=== PATIENT | female | born 1935 | race Hispanic/Latino ===

== ENCOUNTER 2016-08-21 11:31 | Emergency (ER) | payer MEDICARE ==
[2016-08-21 12:01] LABS: #Basophils 0.1 thou/uL (0.0-0.2); #Lymphocytes 1.7 thou/uL (1.20-3.40); #Monocytes 0.6 thou/uL (0.11-0.59); %Basophils 1.4 % (0.0-1.0); %Eosinophils 11.6 % (0.0-10.0); %Monocytes 7.2 % (0.0-10.0); %Neutrophils 59.8 % (42.0-75.0); Hemoglobin 12.4 g/dL (12.0-16.0); Mean Corpuscular HGB CONC 32.8 g/dL (32.0-36.0); Mean Corpuscular Hemoglobin 28.6 pg (27.0-31.0); Mean Corpuscular Volume 87.2 fl (81.0-99.0); Mean Platelet Volume 7.6 fL (7.4-10.4); Platelet Count 264 thou/uL (130-400); RBC Distribution Width 12.5 % (11.5-14.5); Red Blood Cell (RBC) Count 4.33 mill/uL (4.20-5.40); White Blood Cell (WBC) Count 8.3 thou/uL (4.8-10.8)
[2016-08-21 12:15] LABS: CKMB 1.7 ng/mL (0-6.6); Troponin I 0.016 ng/mL (< 0.028)
[2016-08-21 12:16] LABS: ALT (SGPT) 13 U/L (8-55); AST (SGOT) 17 U/L (5-34); Albumin 4.1 g/dL (3.4-4.8); Alkaline Phosphatase 142 U/L (40-150); Anion Gap 15 mmol/L (10-20); BUN (Urea Nitrogen) 19 mg/dL (9.8-20.1); Bilirubin, Total 0.4 mg/dL (0.2-1.2); Calc. Creatinine Clearance 0 mL/min (70-130); Calcium 10.1 mg/dL (7.8-10.44); Carbon Dioxide 25 mmol/L (23-31); Chloride 102 mmol/L (98-107); Estimated GFR-MDRD 70; Globulin 3.5 g/dL (2.4-3.5); Glucose 99 mg/dL (83-110); Potassium 4.1 mmol/L (3.5-5.1); Protein, Total 7.6 g/dL (6.0-8.3); Sodium 138 mmol/L (136-145)
[2016-08-21 12:18] LABS: INR-International Normal Ratio 0.9; Prothrombin Time 12.7 SEC (12.0-14.7)
[2016-08-21 12:20] LABS: D-Dimer Test 0.55 *mcg/mL (0.27-0.43)
--- NOTE | 2016-08-21 12:47 | RAD ---
PORTABLE AP CHEST: Date: 08-21-16 History: Chest pain which radiates into the back between shoulder blades. Comparison: 01-31-16 FINDINGS: Cardiac silhouette is magnified by projection. Pulmonary vasculature is within normal limits. The johnathan ngs are clear. There is osteopenia. There has been no interval change from the prior exam. IMPRESSION: No acute cardiopulmonary process. POS: [facility]
--- NOTE | 2016-08-21 14:01 | CT ---
CT PULMONARY ANGIOGRAM WITH IV CONTRAST AND 3D POSTPROCESSING: Date: 08/21/16 HISTORY: Chest pain with elevated D-Dimer. FINDINGS: No filling defects are seen in the well contrast opacified pulmonary arterial vasculature to suggest pulmonary embolism. The thoracic aorta is well opacified without aneurysm or dissection. No pleural or pericardial effusions are seen. No pneumothoraces, lobar consolidation, or pulmonary masses are seen. There is scarring in the lung apices. There is a tiny calcified granuloma in the superior segm ent of the right lower lobe. There are degenerative changes in the spine. A small hiatal hernia is p resent. There is a 2.2 cm left adrenal mass. There are cysts in the right kidney. Degenerative naidu es are present in the spine. IMPRESSION: 1. No CT evidence of pulmonary embolism or thoracic aortic dissection/aneurysm. 2. Small hiatal hernia. 3. Indeterminate 2.2 cm left adrenal nodule. A dedicated CT scan of the abdomen using the adrenal p rotocol should be performed on a nonemergent basis. POS: [id number]
[2016-08-21 14:30] LABS: CKMB 1.6 ng/mL (0-6.6); Troponin I Less than 0.010 ng/mL (< 0.028)
== END 2016-08-21 14:42 | disposition home or self-care (01) ==
LOC: NAV ERS 11:31
DX: R07.2 Precordial pain (principal); E11.9 Type 2 diabetes mellitus without complications; I10 Essential (primary) hypertension; J45.909 Unspecified asthma, uncomplicated; Z79.899 Other long term (current) drug therapy
CPT/HCPCS: 71010; 71275; 80053; 82553; 83880; 84484; 85025; 85379; 85610; 85730; 93005; 94760

== ENCOUNTER 2016-11-18 08:47 | Outpatient (CLI) | payer MEDICARE ==
[2016-11-18 12:57] LABS: #Basophils 0.1 thou/uL (0.0-0.2); #Eosinphils 1.1 thou/uL (0.0-0.7); #Lymphocytes 1.7 thou/uL (1.20-3.40); #Monocytes 0.6 thou/uL (0.11-0.59); #Neutrophils 4.2 thou/uL (1.40-6.50); %Basophils 1.5 % (0.0-1.0); %Eosinophils 13.7 % (0.0-10.0); %Lymphocytes 22.1 % (21.0-51.0); %Monocytes 7.5 % (0.0-10.0); %Neutrophils 55.1 % (42.0-75.0); Hemoglobin 12.6 g/dL (12.0-16.0); Mean Corpuscular HGB CONC 31.5 g/dL (32.0-36.0); Mean Corpuscular Hemoglobin 28.3 pg (27.0-31.0); Mean Corpuscular Volume 89.9 fl (81.0-99.0); Mean Platelet Volume 7.3 fL (7.4-10.4); Platelet Count 267 thou/uL (130-400); RBC Distribution Width 12.2 % (11.5-14.5); Red Blood Cell (RBC) Count 4.45 mill/uL (4.20-5.40); White Blood Cell (WBC) Count 7.6 thou/uL (4.8-10.8)
[2016-11-18 18:21] LABS: Hemoglobin A1c 5.9 % (4.0-6.0)
[2016-11-18 18:59] LABS: ALT (SGPT) 14 U/L (8-55); AST (SGOT) 20 U/L (5-34); Albumin 4.3 g/dL (3.4-4.8); Alkaline Phosphatase 147 U/L (40-150); Anion Gap 20 mmol/L (10-20); BUN (Urea Nitrogen) 16 mg/dL (9.8-20.1); Bilirubin, Direct 0.2 mg/dL (0.1-0.3); Bilirubin, Total 0.4 mg/dL (0.2-1.2); Calc. Creatinine Clearance 0 mL/min (70-130); Calcium 10.2 mg/dL (7.8-10.44); Carbon Dioxide 24 mmol/L (23-31); Cardiac Risk 3.3 (Less than 4.5); Chloride 105 mmol/L (98-107); Cholesterol 184 mg/dl (< 200 Desired); Estimated GFR-MDRD 79; Glucose 94 mg/dL (83-110); HDL Cholesterol 56 mg/dL (>60 Neg Risk); LDL Cholesterol, Calculated 105 mg/dL; Protein, Total 7.4 g/dL (6.0-8.3); Sodium 144 mmol/L (136-145); Triglycerides 115 mg/dL (Less than 150)
== END 2016-11-18 08:48 | disposition home or self-care (01) ==
LOC: NAVSJIPCSP 08:47
PROVIDERS: ATTEND Family Medicine
DX: J44.9 Chronic obstructive pulmonary disease, unspecified (principal); I10 Essential (primary) hypertension; E11.9 Type 2 diabetes mellitus without complications; R60.9 Edema, unspecified; Z79.899 Other long term (current) drug therapy
CPT/HCPCS: 36415; 80048; 80061; 80076; 83036; 84443; 85025

== ENCOUNTER 2017-07-18 18:25 | Emergency (ER) | payer MEDICARE ==
[2017-07-18] MEDS ORDERED: Pantoprazole 40 MG VIAL ONE (19:15)
[2017-07-18 19:20] LABS: PTT 34.8 SEC (22.9-36.1); Prothrombin Time 13.1 SEC (12.0-14.7)
[2017-07-18 19:29] LABS: ALT (SGPT) 12 U/L (8-55); AST (SGOT) 13 U/L (5-34); Albumin 3.8 g/dL (3.4-4.8); Alkaline Phosphatase 173 U/L (40-150); Anion Gap 14 mmol/L (10-20); BUN (Urea Nitrogen) 18 mg/dL (9.8-20.1); Bilirubin, Total 0.2 mg/dL (0.2-1.2); Calc. Creatinine Clearance 0 mL/min (70-130); Calcium 10.1 mg/dL (7.8-10.44); Carbon Dioxide 26 mmol/L (23-31); Chloride 104 mmol/L (98-107); Estimated GFR-MDRD 68; Globulin 3.1 g/dL (2.4-3.5); Glucose 178 mg/dL (83-110); Lipase 40 U/L (8-78); Potassium 4.2 mmol/L (3.5-5.1); Protein, Total 6.9 g/dL (6.0-8.3); Sodium 140 mmol/L (136-145)
[2017-07-18 19:35] LABS: Hemoglobin 11.4 g/dL (12.0-16.0); Mean Corpuscular Hemoglobin 28.1 pg (27.0-31.0); Mean Corpuscular Volume 87.8 fl (81.0-99.0); Mean Platelet Volume 7.4 fL (7.4-10.4); Platelet Count 298 thou/uL (130-400); RBC Distribution Width 12.8 % (11.5-14.5); Red Blood Cell (RBC) Count 4.07 mill/uL (4.20-5.40); White Blood Cell (WBC) Count 7.7 thou/uL (4.8-10.8)
[2017-07-18 20:11] LABS: Band 2 % (5-11); Eosinophils 9 % (0-10); Lymphocytes 21 % (21-51); MDiff Complete? YES; Monocytes 5 % (0-10); Neutrophil 62 % (42-75); PLT Morphology Comment Appears Adequate; RBC Morphology Normal
[2017-07-18 20:13] LABS: Bilirubin Negative (Negative); Blood, Urine Small (Negative); Clarity Clear (Clear); Glucose, Urine (Dipstick) Negative (Negative); Leukocyte Moderate (Negative); Nitrite Negative (Negative); Protein, Urine (Dipstick) Negative (Neg-Trace); Specific Gravity, Urine 1.015 (1.005-1.030); Urobilinogen 0.2 mg/dL (0.2-1.0); pH, Urine 5.5 (5.0-9.0)
[2017-07-18 20:21] LABS: Bacteria/HPF Rare-Few HPF (None Seen); RBC/HPF 0-3 HPF (0-3); Squamous Epithelial 0-3 HPF (0-3)
== END 2017-07-18 20:49 | disposition short-term general hospital (02) ==
LOC: NAV ERS 18:25
DX: K92.2 Gastrointestinal hemorrhage, unspecified (principal); E11.9 Type 2 diabetes mellitus without complications; I10 Essential (primary) hypertension; J45.909 Unspecified asthma, uncomplicated; Z79.899 Other long term (current) drug therapy
CPT/HCPCS: 80053; 81003; 81015; 82274; 83690; 85025; 85610; 85730; 86850; 86900; 86901; 96365; 96375; C9113

== ENCOUNTER 2019-01-14 07:32 | Observation (INO) | payer MEDICARE ==
[2019-01-14] MEDS ORDERED: Sodium Chloride 0.9% 500 ML ONE ×2 (08:01→08:58)
[2019-01-14] MEDS ORDERED: Acetaminophen 500 MG TAB ONE (08:01)
--- NOTE | 2019-01-14 08:07 | RAD ---
SINGLE VIEW CHEST: DATE: 01/14/19 COMPARISON: 08/21/16. HISTORY: Cough and sore throat. Fever. FINDINGS: Single view of the chest shows a normal sized cardiomediastinal silhouette. There is no evidence of c onsolidation, mass, or pleural effusion. The bones are unremarkable. IMPRESSION: No evidence of acute cardiopulmonary disease. POS: [facility]
[2019-01-14 08:37] LABS: ALT (SGPT) 15 U/L (8-55); AST (SGOT) 19 U/L (5-34); Albumin 4.3 g/dL (3.4-4.8); Alkaline Phosphatase 135 U/L (40-110); Anion Gap 18 mmol/L (10-20); BUN (Urea Nitrogen) 16 mg/dL (9.8-20.1); Bilirubin, Total 0.7 mg/dL (0.2-1.2); Calc. Creatinine Clearance 0 mL/min (70-130); Calcium 10.7 mg/dL (7.8-10.44); Carbon Dioxide 23 mmol/L (23-31); Chloride 98 mmol/L (98-107); Estimated GFR-MDRD 69; Globulin 3.4 g/dL (2.4-3.5); Glucose 105 mg/dL (83-110); Potassium 4.1 mmol/L (3.5-5.1); Protein, Total 7.7 g/dL (6.0-8.3); Sodium 135 mmol/L (136-145)
[2019-01-14 08:47] LABS: Hemoglobin 13.5 g/dL (12.0-16.0); MDiff Complete? YES; Mean Corpuscular HGB CONC 32.3 g/dL (32.0-36.0); Mean Corpuscular Hemoglobin 28.3 pg (27.0-31.0); Mean Corpuscular Volume 87.5 fL (78.0-98.0); Mean Platelet Volume 7.1 fL (7.4-10.4); Platelet Count 223 thou/uL (130-400); RBC Distribution Width 11.8 % (11.5-14.5); Red Blood Cell (RBC) Count 4.77 mill/uL (4.20-5.40); White Blood Cell (WBC) Count 9.8 thou/uL (4.8-10.8)
[2019-01-14 08:48] LABS: Blast 1 % (0-0); Eosinophils 1 % (0-10); Lymphocytes 8 % (21-51); Monocytes 12 % (0-10); Neutrophil 78 % (42-75); Platelet Morphology Comment Appears Adequate
[2019-01-14 09:13] LABS: Bilirubin Small (Negative); Blood, Urine Moderate (Negative); Clarity Clear (Clear); Glucose, Urine (Dipstick) Negative (Negative); Leukocyte Trace (Negative); Nitrite Negative (Negative); Protein, Urine (Dipstick) 30 mg/dL (Neg-Trace)
[2019-01-14 09:20] LABS: Bacteria/HPF None Seen HPF (None Seen); Squamous Epithelial 0-3 HPF (0-3)
[2019-01-14 09:21] LABS: Mucous/LPF 3+ LPF (<2+)
[2019-01-14] MEDS ORDERED: methylPREDNISolone Sod Succ/PF 125 MG/2 ML VIAL ONE (09:45)
[2019-01-14] MEDS ORDERED: Sodium Chloride 0.9% 1,000 ML ONE (09:46)
[2019-01-14] MEDS ORDERED: Albuterol Sulfate 2.5 mg/3 ml Neb NEB PRN (11:15)
[2019-01-14] MEDS ORDERED: Sodium Chloride 0.9% 1,000 ML IV SCH (11:16)
[2019-01-14] MEDS ORDERED: Non-Formulary Item 1 EACH (Fluticasone/Salmeterol [Advair Diskus 250/50] 1 INH) IH PRN (13:10)
[2019-01-14] MEDS ORDERED: Non-Formulary Item 1 EACH (Acetaminophen [Tylenol] 1 CAP) PO PRN (13:10)
[2019-01-14] MEDS ORDERED: Montelukast Sodium 10 mg Tablet PO PRN (13:10)
[2019-01-14] MEDS ORDERED: Loperamide HCl 2 MG CAP PO PRN (13:11)
[2019-01-14] MEDS ORDERED: Acetaminophen 325 MG TAB PO PRN (13:11)
[2019-01-14] MEDS ORDERED: Ondansetron ODT 4 MG TAB PO PRN (13:11)
[2019-01-14] MEDS ORDERED: Senokot S 8.6-50 MG TAB PO PRN (13:11)
[2019-01-14] MEDS: Sodium Chloride 0.9% 1,000 ML IV SCH ×2 (13:52→22:22)
[2019-01-14] MEDS: Mometasone/Formoterol 60 PUFF AER INH SCH (18:00)
[2019-01-14] MEDS: Lisinopril 10 MG TAB PO SCH (21:00)
[2019-01-14] MEDS: Famotidine 20 MG TAB PO SCH (21:01)
[2019-01-15] MEDS: Mometasone/Formoterol 60 PUFF AER INH SCH (05:36)
[2019-01-15 05:42] VITALS: BMI 24.5
[2019-01-15 06:14] LABS: ALT (SGPT) 14 U/L (8-55); AST (SGOT) 17 U/L (5-34); Albumin 3.6 g/dL (3.4-4.8); Alkaline Phosphatase 106 U/L (40-110); Anion Gap 13 mmol/L (10-20); BUN (Urea Nitrogen) 15 mg/dL (9.8-20.1); Bilirubin, Total 0.4 mg/dL (0.2-1.2); Calc. Creatinine Clearance 65 mL/min (70-130); Carbon Dioxide 23 mmol/L (23-31); Chloride 105 mmol/L (98-107); Estimated GFR-MDRD 84; Globulin 2.8 g/dL (2.4-3.5); Glucose 112 mg/dL (83-110); Potassium 3.7 mmol/L (3.5-5.1); Protein, Total 6.4 g/dL (6.0-8.3); Sodium 137 mmol/L (136-145)
[2019-01-15] MEDS ORDERED: Cyanocobalamin (Vitamin B-12) 1,000 MCG TAB PO SCH (09:00)
[2019-01-15] MEDS: Lisinopril 10 MG TAB PO SCH (09:53)
[2019-01-15] MEDS: Famotidine 20 MG TAB PO SCH (09:53)
[2019-01-15] MEDS ORDERED: Azithromycin 250 MG TAB PO SCH (11:15)
[2019-01-15 11:22] VITALS: BP 146/60; TEMP 96.4
--- NOTE | 2019-01-15 13:33 | DIS ---
DATE OF ADMISSION: 01/14/2019 DATE OF DISCHARGE: 01/15/2019 PRINCIPAL DIAGNOSIS: Asthmatic bronchitis. SECONDARY DIAGNOSES: 1. Asthma. 2. Hypertension. 3. Allergic rhinitis. COMPLICATIONS: None. ADVERSE REACTIONS: None. PROCEDURES: None. CONSULTATIONS: None. HOSPITAL COURSE: The patient was admitted through the ER after presenting to the emergency room with fever, cough, and fatigue. The patient states that she has been using her Symbicort, but only once a day. She apparently has a history of allergy. She apparently worked outside without wearing her mask and then she started feeling bad. In the emergency room, her workup was negative for any pneumonia. Strep screen and flu screen were negative. She was given a dose of steroids and admitted to the hospital with some IV fluids. I am not sure if she got any antibiotics in the emergency room. This morning, she is feeling better, but still has some cough. She is having some greenish expectoration. She denies any chest pain or shortness of breath. Her oxygen saturation is 92% on room air. Plan is to ambulate her in the hallways and monitor her oxygen status, and if she is doing well and no lightheadedness, dizziness, or no drop in her oxygenation, then we will discharge her home. I advised her that I will give her one dose of Zithromax 500 mg p.o. now, and she is to continue Zithromax 250 mg p.o. daily for the next 4 days. I will also send in prednisone 20 mg b.i.d. for 3 days. PHYSICAL EXAMINATION: VITAL SIGNS: On the day of discharge, she is afebrile, heart rate is 77, respirations 18, and blood pressure 156/72. CARDIOVASCULAR SYSTEM: S1 and S2 plus. RESPIRATORY SYSTEM: Normal vesicular breath sounds with occasional wheeze. ABDOMEN: Soft and nontender. Bowel sounds heard in all quadrants. EXTREMITIES: Without cyanosis or clubbing. Peripheral pulses are palpable CENTRAL NERVOUS SYSTEM: AAO x3. Cranial nerves 2 through 12 intact. Generalized weakness. DIAGNOSTIC STUDIES: LABORATORY RESULTS: Sodium this morning was 137, potassium 3.7, BUN and creatinine are 15 and 0.67. DISCHARGE MEDICATIONS: 1. Zithromax 250 mg daily for 4 days. 2. Prednisone 20 mg b.i.d. for 3 days. 3. Lisinopril 10 mg b.i.d. 4. Singulair 10 mg daily. 5. Advair Diskus 250/50 one puff b.i.d., gargle after use. DIET: She is to follow a heart healthy diet. ACTIVITY: As tolerated. FOLLOWUP: She is to follow up with Dr. Morris in 7 to 10 days. She is to call us with any questions or concerns. Her family is in the room. All questions answered. DISCHARGE MEDICATIONS: Medications were sent in to [facility], which is her pharmacy. Job ID: [id number]
[2019-01-15] MEDS ORDERED: predniSONE 20 MG TAB PO SCH (21:00)
[2019-01-16] MEDS ORDERED: Azithromycin 250 MG TAB PO SCH (09:00)
--- NOTE | 2019-01-17 08:35 | HP ---
SUBJECTIVE: Ms. Lamb is a very pleasant 83-year-old female, who presented to the emergency room for evaluation with extreme fatigue, body aches, fever, cough, congestion, and chills. She has been taking albuterol and Tylenol, but has not been getting any better. She was seen in the emergency room by Dr. Ulysses Begum. He evaluated and felt that she needed admission at least to observation. She had upper respiratory most likely viral infection. Her strep screen was negative, although she did have some sore throat. Her influenza A and B were both negative. She was admitted because she was dehydrated, and so she was started on IV fluids of 100 mL an hour. She was also given some IV steroids in the emergency room and admitted. We will restart all of her home medications which include the following; 1. Lisinopril 10 mg one pill two times a day. 2. Advair Diskus 250/50 one puff b.i.d. 3. Montelukast 10 mg every h.s. 4. Vitamin B12 of 500 mcg once a day. 5. Vitamin D3 one capsule orally once a day. PAST MEDICAL HISTORY: Positive for 1. Asthma. 2. Allergic reaction to wasp sting. 3. Seborrheic keratosis. 4. 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 5. Diabetes. 6. Hypertension. SURGICAL HISTORY: Reveals 1. In 1959, breast surgery. 2. In 1980, excision of a cystic adenoma, left breast by Dr. Kimber Alcantar. 3. Bilateral cataract removal by Dr. Cespedes in June 2017. 4. Lumpectomy by Dr. Solomon in 2017. 5. Excision of lumpectomy margins, Dr. Solomon on January 26, 2018. FAMILY HISTORY: Reveals the patient's father at age 86 with degrees of heart problems and diabetes. The patient's mother at age 92. She had congestive heart failure, glaucoma, diabetes, hypertension, and heart disease. The patient had two brothers, who had , one from [place] related illness and the other from diabetes. The patient has a son alive, diagnosed with diabetes. The patient has one son and two daughters. They are healthy. SOCIAL HISTORY: Reveals the patient does not smoke. Rarely ever drinks at all. She is basically alone. She is retired and she is . She has one dog. She drinks coffee every morning, occasional glass of tea. She does Mendel exercises three times a week. She does not travel out of [facility]. ALLERGIES: REVEAL THE PATIENT IS ALLERGIC TO WASP STINGS. REVIEW OF SYSTEMS: CONSTITUTIONAL: Reveals the patient complains of generalized weakness with fever and chills about 100.5 or less. HEENT: The patient denies any change in her vision or hearing, but she has quite a bit of congestion and she just feels achy all over. CARDIOVASCULAR: The patient denies any palpitations, irregular heartbeat, edema, or shortness of breath. She does have some cough and congestion that has been increasing for the last 2-1/2 days. CARDIAC: The patient denies chest pain, palpitations, or regular heartbeat. GASTROENTEROLOGY: She denies diarrhea, constipation, nausea, or vomiting, although she has had a significant decrease in her appetite. MUSCULOSKELETAL: The patient states she is achy all over and just feels yucky. : The patient denies any increased urination, burning on urination, urgency, frequency, or dysuria. NEUROLOGIC: The patient denies headaches, just feels weak all over. Denies lightheadedness, paresthesias, or numbness. PSYCHIATRIC: The patient denies anxiety or depressive disorder. ENDOCRINE: The patient denies polyuria, polydipsia, or polyphagia. She does feel tired. PHYSICAL EXAMINATION: GENERAL: This is a well-developed, well-nourished, very pleasant 83-year-old female, presented to the emergency room with fever, chills, extreme achiness, weakness, and upper respiratory symptoms. HEENT: Reveals normocephalic and nontraumatic cranium. Pupils are equal, round, and reactive. Extraocular movements are intact. Nose and throat are slightly dry. Tongue is dry. NECK: Supple without masses, nodes, or bruits. CHEST: Clear to auscultation. No rales, rhonchi, or wheezes are heard, although the patient does have some coarse breath sounds, especially with coughing. HEART: Reveals a regular rate and rhythm without murmurs, gallops, or rubs. ABDOMEN: Soft, nontender without organomegaly. Normal bowel sounds are noted. No rebound or guarding is noted. : Deferred. EXTREMITIES: Reveal no clubbing, cyanosis, or edema. PSYCHOLOGIC: The patient is alert and oriented x4. She is well-kempt, cooperative. Affect is normal. Mood is appropriate. Intelligence above normal. ASSESSMENT: 1. Upper respiratory infection, most likely viral. 2. History of asthma and chronic obstructive pulmonary disease. 3. Dehydration. 4. Generalized weakness with subjective fever, chills, and achiness. PLAN: 1. The patient is admitted to observation. 2. We will slowly rehydrate the patient, start her off at 100 mL an hour, then decrease to 75. 3. Repeat labs tomorrow morning. 4. Handheld nebulizers q.i.d. and p.r.n. 5. Continue supportive care. 6. Dr. Mary Ortega will be following up this patient over the weekend. Job ID: [id number]
== END 2019-01-15 13:20 | disposition home or self-care (01) ==
LOC: NAV ERS 07:32 → NAV ACUTE 10:16
PROVIDERS: ADMIT Family Medicine; ATTEND Family Medicine
DX: E86.0 Dehydration (principal); J44.9 Chronic obstructive pulmonary disease, unspecified; I10 Essential (primary) hypertension; E11.9 Type 2 diabetes mellitus without complications; J06.9 Acute upper respiratory infection, unspecified; J30.9 Allergic rhinitis, unspecified; Z79.82 Long term (current) use of aspirin; Z79.899 Other long term (current) drug therapy; Z91.038 Other insect allergy status; Z91.040 Latex allergy status
CPT/HCPCS: 36415; 71045; 80053; 81003; 81015; 83605; 85025; 87040; 87081; 87430; 87804; 94640; 96361; 96374; G0378; J2930; J7050; J7620

== ENCOUNTER 2019-10-01 13:54 | Emergency (ER) | payer MEDICARE, OTHER ==
[2019-10-03 13:41] LABS: SARS-CoV-2 MS2 Positive; SARS-CoV-2 N Gene Negative; SARS-CoV-2 S Gene Negative; SARS-CoV-2 orf1ab Negative
== END 2019-10-01 15:35 | disposition home or self-care (01) ==
LOC: NAV ERS 13:54
DX: Z20.828 Contact with and (suspected) exposure to other viral communicable diseases (principal); J45.909 Unspecified asthma, uncomplicated; I10 Essential (primary) hypertension; Z79.899 Other long term (current) drug therapy; Z79.82 Long term (current) use of aspirin
CPT/HCPCS: 99283; U0003; 87635

== ENCOUNTER 2019-11-25 12:47 | Emergency (ER) | payer MEDICARE ==
--- NOTE | 2019-11-25 13:38 | CT ---
EXAM: CT brain without contrast HISTORY: Left facial numbness COMPARISON: None TECHNIQUE: Multiple contiguous axial images were obtained and a CT of the brain without contrast. FINDINGS: The brain is normal in morphology and attenuation without focal lesions or confluent areas of infarction. There is no evidence of hydrocephalus, intracranial hemorrhage, or extra-axial fluid collection. The calvarium and overlying soft tissues are unremarkable. Mucosal thickening is seen in paranasal si nuses. The mastoid air cells are well aerated. IMPRESSION: No evidence of acute intracranial abnormality
--- NOTE | 2019-11-25 13:46 | RAD ---
EXAM: Chest 2 views: HISTORY: Left facial numbness COMPARISON: 12/31/2017 FINDINGS: There is a normal-sized cardiomediastinal silhouette. There is no evidence of consolidation, mass, or pleural effusion. The bones are unremarkable. IMPRESSION: No evidence of acute cardiopulmonary disease
[2019-11-25 13:48] LABS: #Basophils 0.1 thou/uL (0.0-0.2); #Eosinphils 0.9 thou/uL (0.0-0.7); #Lymphocytes 1.3 thou/uL (1.20-3.40); #Monocytes 0.5 thou/uL (0.11-0.59); #Neutrophils 3.9 thou/uL (1.40-6.50); %Basophils 1.8 % (0.0-1.0); %Eosinophils 13.5 % (0.0-10.0); %Lymphocytes 19.1 % (21.0-51.0); %Monocytes 6.8 % (0.0-10.0); %Neutrophils 58.9 % (42.0-75.0); ALT (SGPT) 13 U/L (8-55); AST (SGOT) 17 U/L (5-34); Albumin 4.1 g/dL (3.4-4.8); Alkaline Phosphatase 156 U/L (40-110); Anion Gap 11 mmol/L (10-20); BUN (Urea Nitrogen) 15 mg/dL (9.8-20.1); Bilirubin, Total 0.3 mg/dL (0.2-1.2); Calc. Creatinine Clearance 0 mL/min (70-130); Calcium 10.2 mg/dL (7.8-10.44); Carbon Dioxide 27 mmol/L (23-31); Chloride 105 mmol/L (98-107); Estimated GFR-MDRD 80; Globulin 2.9 g/dL (2.4-3.5); Glucose 121 mg/dL (83-110); Hemoglobin 11.7 g/dL (12.0-16.0); Mean Corpuscular Hemoglobin 28.9 pg (27.0-31.0); Mean Corpuscular Volume 93.3 fL (78.0-98.0); Mean Platelet Volume 8.4 fL (7.4-10.4); Platelet Count 235 thou/uL (130-400); Potassium 4.4 mmol/L (3.5-5.1); RBC Distribution Width 12.3 % (11.5-14.5); Red Blood Cell (RBC) Count 4.03 mill/uL (4.20-5.40); Sodium 139 mmol/L (136-145); White Blood Cell (WBC) Count 6.6 thou/uL (4.8-10.8)
== END 2019-11-25 14:40 | disposition home or self-care (01) ==
LOC: NAV ERS 12:47
DX: R20.2 Paresthesia of skin (principal); I10 Essential (primary) hypertension; J45.909 Unspecified asthma, uncomplicated; Z79.899 Other long term (current) drug therapy; Z79.82 Long term (current) use of aspirin
CPT/HCPCS: 36416; 70450; 71046; 80053; 84443; 84484; 85025; 93005; 94760

== ENCOUNTER 2020-01-25 08:36 | Emergency (ER) | payer MEDICARE ==
[2020-01-25] MEDS ORDERED: Clindamycin 150 MG CAP ONE (09:00)
== END 2020-01-25 09:09 | disposition home or self-care (01) ==
LOC: NAV ERS 08:36
DX: L02.411 Cutaneous abscess of right axilla (principal); I10 Essential (primary) hypertension; J45.909 Unspecified asthma, uncomplicated; Z79.899 Other long term (current) drug therapy; Z79.82 Long term (current) use of aspirin
CPT/HCPCS: 99283

== ENCOUNTER 2020-07-02 09:43 | Observation (INO) | payer MEDICARE ==
[2020-07-02] MEDS ORDERED: Sodium Chloride 0.9% 1,000 ML ONE ×2 (10:30→11:53)
[2020-07-02 10:46] LABS: #Basophils 0.1 thou/uL (0.0-0.2); #Lymphocytes 0.9 thou/uL (1.20-3.40); #Monocytes 1.2 thou/uL (0.11-0.59); #Neutrophils 11.2 thou/uL (1.40-6.50); %Basophils 0.8 % (0.0-1.0); %Eosinophils 0.2 % (0.0-10.0); %Lymphocytes 6.4 % (21.0-51.0); %Neutrophils 83.7 % (42.0-75.0); Hemoglobin 13.1 g/dL (12.0-16.0); Mean Corpuscular HGB CONC 33.1 g/dL (32.0-36.0); Mean Corpuscular Hemoglobin 29.7 pg (27.0-31.0); Mean Corpuscular Volume 89.9 fL (78.0-98.0); Mean Platelet Volume 7.4 fL (7.4-10.4); Platelet Count 263 thou/uL (130-400); RBC Distribution Width 11.6 % (11.5-14.5); Red Blood Cell (RBC) Count 4.41 mill/uL (4.20-5.40); White Blood Cell (WBC) Count 13.4 thou/uL (4.8-10.8)
[2020-07-02 10:50] LABS: ALT (SGPT) 11 U/L (8-55); AST (SGOT) 12 U/L (5-34); Alkaline Phosphatase 145 U/L (40-110); Anion Gap 16 mmol/L (10-20); BUN (Urea Nitrogen) 35 mg/dL (9.8-20.1); Bilirubin, Total 1.3 mg/dL (0.2-1.2); Calc. Creatinine Clearance 0 mL/min (70-130); Calcium 11.3 mg/dL (7.8-10.44); Carbon Dioxide 24 mmol/L (23-31); Chloride 100 mmol/L (98-107); Globulin 3.9 g/dL (2.4-3.5); Glucose 142 mg/dL (83-110); Potassium 4.3 mmol/L (3.5-5.1); Protein, Total 7.9 g/dL (5.8-8.1); Sodium 136 mmol/L (136-145)
[2020-07-02] MEDS ORDERED: cefTRIAXone\\ROCEPHIN 2 GM VIAL ONE (11:19)
[2020-07-02] MEDS ORDERED: Sodium Chloride 0.9% 100 ML ONE (11:19)
[2020-07-02] MEDS ORDERED: Sodium Chloride 0.9% 250 ML 250 ML ONE (11:43)
[2020-07-02] MEDS ORDERED: Azithromycin 500 MG VIAL ONE (11:43)
[2020-07-02 12:40] LABS: SARS-CoV-2 NAA Rapid Test Not Detected (NotDetected)
[2020-07-02 14:28] VITALS: BMI 24.3
[2020-07-02] MEDS ORDERED: Sodium Chloride 0.9% 1,000 ML IV SCH (14:30)
[2020-07-02] MEDS ORDERED: Acetaminophen 500 MG TAB PO PRN (15:56)
[2020-07-02] MEDS ORDERED: Albuterol Sulfate 2.5 mg/3 ml Neb NEB PRN (18:59)
[2020-07-02] MEDS ORDERED: Montelukast Sodium 10 mg Tablet PO SCH (21:00)
[2020-07-02] MEDS: Lisinopril 10 MG TAB PO SCH (21:36)
[2020-07-03] MEDS: Sodium Chloride 0.9% 1,000 ML IV SCH ×2 (01:17→09:39)
[2020-07-03 05:16] LABS: #Basophils 0.1 thou/uL (0.0-0.2); #Eosinphils 0.1 thou/uL (0.0-0.7); #Lymphocytes 0.9 thou/uL (1.20-3.40); #Neutrophils 7.6 thou/uL (1.40-6.50); %Basophils 1.1 % (0.0-1.0); %Lymphocytes 8.8 % (21.0-51.0); %Neutrophils 79.1 % (42.0-75.0); Hemoglobin 10.2 g/dL (12.0-16.0); Mean Corpuscular HGB CONC 32.8 g/dL (32.0-36.0); Mean Corpuscular Hemoglobin 29.5 pg (27.0-31.0); Mean Platelet Volume 7.2 fL (7.4-10.4); Platelet Count 228 thou/uL (130-400); RBC Distribution Width 11.8 % (11.5-14.5); Red Blood Cell (RBC) Count 3.46 mill/uL (4.20-5.40); White Blood Cell (WBC) Count 9.6 thou/uL (4.8-10.8)
[2020-07-03 05:27] LABS: Anion Gap 11 mmol/L (10-20)
[2020-07-03 05:47] LABS: BUN (Urea Nitrogen) 22 mg/dL (9.8-20.1); Calc. Creatinine Clearance 70 mL/min (70-130); Calcium 9.6 mg/dL (7.8-10.44); Carbon Dioxide 22 mmol/L (23-31); Chloride 107 mmol/L (98-107); Glucose 102 mg/dL (83-110); Potassium 3.9 mmol/L (3.5-5.1); Sodium 136 mmol/L (136-145)
[2020-07-03] MEDS ORDERED: Aspirin Chewable 81 MG TAB PO SCH (09:00)
[2020-07-03] MEDS ORDERED: FLU VACC QS2020-21(65YR UP)/PF 240 MCG/0.7 ML SYRINGE IM ONE (09:00)
[2020-07-03] MEDS ORDERED: Mometasone/Formoterol 200/5 60 PUFF INH SCH (09:00)
[2020-07-03] MEDS ORDERED: Stress 600 With Zinc 1 TAB PO SCH (09:00)
[2020-07-03] MEDS: Lisinopril 10 MG TAB PO SCH (09:41)
[2020-07-03] MEDS ORDERED: cefTRIAXone\\ROCEPHIN 1 GM in Sodium Chloride 0.9% 100 ML IVPB SCH (11:00)
[2020-07-03 13:19] VITALS: BP 144/64; TEMP 99.6
[2020-07-03] MEDS ORDERED: predniSONE 20 MG TAB PO SCH (21:00)
[2020-07-03] MEDS ORDERED: Cefuroxime Axetil 250 MG TAB PO SCH (21:00)
== END 2020-07-03 14:45 | disposition home or self-care (01) ==
LOC: NAV ERS 09:43 → NAV ACUTE 13:19
PROVIDERS: ADMIT Internal Medicine; ATTEND Internal Medicine
DX: J45.909 Unspecified asthma, uncomplicated (principal); I10 Essential (primary) hypertension; R65.10 Systemic inflammatory response syndrome (SIRS) of non-infectious origin without acute organ dysfunction; Z85.3 Personal history of malignant neoplasm of breast; Z79.82 Long term (current) use of aspirin; Z79.899 Other long term (current) drug therapy; Z91.038 Other insect allergy status; Z91.040 Latex allergy status; Z20.822 Contact with and (suspected) exposure to COVID-19
CPT/HCPCS: 0240U; 71046; 80048; 80053; 83605; 85025; 87040; 93005; 94640; 96365; 96375; J0456; J0696; J3490; J7050; J7620

== ENCOUNTER 2021-04-05 13:17 | Emergency (ER) | payer MEDICARE ==
[2021-04-05] MEDS ORDERED: Ibuprofen 200 MG TAB ONE ×2 (14:12→14:13)
[2021-04-05 15:19] LABS: SARS-CoV-2 NAA Rapid Test Not Detected (NotDetected)
== END 2021-04-05 15:27 | disposition home or self-care (01) ==
LOC: NAV ERS 13:17
DX: J20.9 Acute bronchitis, unspecified (principal); J06.9 Acute upper respiratory infection, unspecified; Z20.822 Contact with and (suspected) exposure to COVID-19; J45.909 Unspecified asthma, uncomplicated; Z79.82 Long term (current) use of aspirin; Z79.899 Other long term (current) drug therapy
CPT/HCPCS: 0240U; 71046

== ENCOUNTER 2021-12-21 06:14 | Emergency (ER) | payer MEDICARE ==
[2021-12-21] MEDS ORDERED: Indomethacin 25 mg Capsule ONE (07:00)
== END 2021-12-21 07:10 | disposition home or self-care (01) ==
LOC: NAV ERS 06:14
DX: M10.9 Gout, unspecified (principal); E78.5 Hyperlipidemia, unspecified; I10 Essential (primary) hypertension; Z79.899 Other long term (current) drug therapy

== ENCOUNTER 2023-05-15 06:11 | Emergency (ER) | payer MEDICARE | END 2023-05-15 06:45 | disposition home or self-care (01) | LOC: NAV ERS 06:11 | DX: L29.9 Pruritus, unspecified (principal); I10 Essential (primary) hypertension; Z79.899 Other long term (current) drug therapy | CPT/HCPCS: 99282 ==

== ENCOUNTER 2023-09-23 05:52 | Emergency (ER) | payer MEDICARE ==
[2023-09-23 06:30] LABS: Bilirubin Negative (Negative); Blood, Urine Trace (Negative); Clarity Clear (Clear); Glucose, Urine (Dipstick) Negative (Negative); Ketone, Urine Negative (Negative); Leukocyte Negative (Negative); Nitrite Negative (Negative); Protein, Urine (Dipstick) Negative (Neg-Trace); Urobilinogen 0.2 mg/dL (Less than 2); pH, Urine 5.5 (5.0-9.0)
[2023-09-23 06:36] LABS: Urine Culture Reflex No No
[2023-09-23 06:37] LABS: Bacteria/HPF Rare-Few HPF (None Seen); CAUTI Indications for Culture Pelvic or flank pain; RBC/HPF 0-3 HPF (0-3); WBC/HPF 0-3 HPF (0-3)
== END 2023-09-23 06:49 | disposition home or self-care (01) ==
LOC: NAV ERS 05:52
DX: M54.6 Pain in thoracic spine (principal); I10 Essential (primary) hypertension; Z79.899 Other long term (current) drug therapy
CPT/HCPCS: 81001; 99283